=== PATIENT | female | born 1995 | race Caucasian/White ===

== ENCOUNTER 2018-09-25 12:29 | Emergency (ER) | payer BC ==
--- NOTE | 2018-09-25 13:33 | EDPHY ---
H & P Stated Complaint: blood in stool Time Seen by Provider: 09/25/18 13:03 HPI/ROS: CHIEF COMPLAINT: Bright red blood per rectum HISTORY OF PRESENT ILLNESS: 23-year-old female presents with bright red blood per rectum. She had a normal bowel movement this morning and when she wiped there was blood on the toilet paper. She then looked in the toilet bowl and the toilet water was red. No associated abdominal pain or other symptoms. No anal intercourse. No prior similar symptoms. Also has a 2 year history of right wrist pain after an injury. Recently slipped and fell and landed on her right wrist, which aggravated the pain. Pain increases with movement. REVIEW OF SYSTEMS: complete 10 point ROS reviewed and is negative except for the noted elements in the HPI - Personal History LMP (Females 10-55): 1-7 Days Ago Current Tetanus Diphtheria and Acellular Pertussis (TDAP): Unsure - Medical/Surgical History Hx Asthma: No Hx Chronic Respiratory Disease: No Hx Diabetes: No Hx Cardiac Disease: No Hx Renal Disease: No Hx Cirrhosis: No Hx Alcoholism: No Hx HIV/AIDS: No Hx Splenectomy or Spleen Trauma: No Other PMH: denies - Social History Smoking Status: Never smoked - Physical Exam Exam: General Appearance: Alert, pleasant Eyes: Pupils equal and round, no conjunctival pallor ENT, Mouth: Mucous membranes moist Neck: Normal inspection Respiratory: Lungs are clear to auscultation Cardiovascular: Regular rate and rhythm Gastrointestinal: Abdomen is soft and nontender Rectal: Normal anal exam, brown stool involved, no hemorrhoid or fissure Neurological: A&O, nonfocal, normal gait Skin: Warm and dry, no rash Extremities: Normal inspection, right wrist nontender, no snuffbox tenderness, range of motion without pain Psychiatric: Mood and affect normal Constitutional: Initial Vital Signs Temperature (C) 36.7 C 09/25/18 12:32 Heart Rate 95 09/25/18 12:32 Respiratory Rate 18 09/25/18 12:32 Blood Pressure 120/82 H 09/25/18 12:32 O2 Sat (%) 96 09/25/18 12:32 O2 Delivery Mode Room Air Allergies/Adverse Reactions: No Known Allergies Allergy (Unverified 09/25/18 12:31) Home Medications: Medication Instructions Recorded Axel Wade 09/25/18 Medical Decision Making - Diagnostics Imaging Results: Imaging Impressions Wrist X-Ray 09/25/18 13:49 Impression: No acute osseous findings. Imaging: I viewed and interpreted images myself Procedures: Anoscopy: No internal hemorrhoid and no blood visualized. ED Course/Re-evaluation: This pt presents with BRBPR. Rectal and anoscopy results unremarkable, no obvious blood. Unfortunately, stool guiaic car , so unable to determine if occult blood present. In any case, no evidence for serious hemorrhage and abd exam benign. Warning signs discussed. Will f/u GI. Differential Diagnosis: includes though not limited to anal fissure, hemorrhoid, diverticulitis, AVM, upper GI bleed - Data Points Laboratory Results: 09/25/18 13:30 Stool Occult Bld Scrn REJ Departure - Departure Disposition: Home, Routine, Self-Care Clinical Impression: Bright red blood per rectum Condition: Good Instructions: Rectal Bleeding (ED) Additional Instructions: Return with dizziness, syncope, increased bleeding, abdominal pain, vomiting blood, any concerns. Referrals: Mario Pla MD [Medical Doctor] - As per Instructions (Call to make an appointment. ) Stand Alone Forms: School Excuse
[2018-09-25 14:04] VITALS: BP 118/79
== END 2018-09-25 14:14 | disposition home or self-care (01) ==
PROC: 0DJD8ZZ Inspection of Lower Intestinal Tract, Via Natural or Artificial Opening Endoscopic (ICD-10-PCS; principal; 2018-09-25)
DX: K62.5 Hemorrhage of anus and rectum (principal)